=== PATIENT | female | born 1985 | race Caucasian/White ===

== ENCOUNTER 2016-12-22 18:58 | Emergency (ER) | payer SELFPAY ==
[2016-12-22 20:47] LABS: BASOPHIL % 0.2 % (0-2); PLATELET COUNT 345 x10^3mcL (130-400); RED CELL DISTRIBUTION WIDTH 13.4 % (11.5-14.5)
[2016-12-22 20:50] LABS: AMPHETAMINE QUAL UR NONE DETECTED (NEG <=1000)
[2016-12-22 20:57] LABS: CALCIUM 9.1 mg/dL (8.5-10.1); CARBON DIOXIDE 28.3 mmol/L (21-32); CHLORIDE SERUM 106 mmol/L (98-107); CREATININE SERUM 0.7 mg/dL (0.6-1.0); GFR1 > 60 mL/min; GLUCOSE SERUM 157 mg/dL (74-106); POTASSIUM SERUM 3.6 mmol/L (3.5-5.1); SODIUM SERUM 141 mmol/L (136-145)
[2016-12-22 21:02] LABS: ALBUMIN 4.3 g/dL (3.4-5.0); ALKALINE PHOSPHATASE 69 U/L (46-116); ALT/SGPT 45 U/L (14-59); AST/SGOT 22 U/L (15-37); TOTAL PROTEIN, SERUM 8.1 g/dL (6.4-8.2)
[2016-12-23 04:45] VITALS: BP 143/97
== END 2016-12-23 04:45 | disposition home or self-care (01) ==
LOC: ED 18:58
PROVIDERS: Emergency Medicine
DX: T40.7X5A Adverse effect of cannabis (derivatives), initial encounter (principal)
CPT/HCPCS: G0480; J2060; J7030

== ENCOUNTER 2019-05-16 20:41 | Emergency (ER) | payer OTHER, MEDICAID ==
[~2019-05-16] VITALS: Ht 154.9 cm; Wt 79.4 kg
[2019-05-16 20:49] VITALS: Ht 154.9 cm; Wt 79.4 kg
[2019-05-16 21:24] LABS: BASOPHIL % 0.9 % (0-2); PLATELET COUNT 351 x10^3mcL (130-400); RED CELL DISTRIBUTION WIDTH 13.9 % (11.5-14.5)
[2019-05-16 21:42] LABS: CALCIUM 8.4 mg/dL (8.5-10.1); CHLORIDE SERUM 105 mmol/L (98-107); CREATININE SERUM 0.6 mg/dL (0.6-1.0); GFR1 > 60 mL/min; GLUCOSE SERUM 143 mg/dL (74-106); POTASSIUM SERUM 3.4 mmol/L (3.5-5.1); SODIUM SERUM 143 mmol/L (136-145)
[2019-05-16 21:46] LABS: ALBUMIN 4.3 g/dL (3.4-5.0); ALKALINE PHOSPHATASE 75 U/L (46-116); ALT/SGPT 58 U/L (14-59); AST/SGOT 28 U/L (15-37); BILIRUBIN TOTAL 0.22 mg/dL (0.20-1.00); LIPASE 217 IU/L (73-393); TOTAL PROTEIN, SERUM 7.9 g/dL (6.4-8.2)
[2019-05-16 22:20] LABS: microscopic required? NO
[2019-05-16 22:34] LABS: urine erythrocyte NEGATIVE (NEGATIVE)
[2019-05-16 23:23] VITALS: BP 128/90
== END 2019-05-16 23:23 | disposition home or self-care (01) ==
LOC: ED 20:41
PROVIDERS: Emergency Medicine
DX: F10.129 Alcohol abuse with intoxication, unspecified (principal); F32.9 Major depressive disorder, single episode, unspecified; Z90.710 Acquired absence of both cervix and uterus; Z88.5 Allergy status to narcotic agent
CPT/HCPCS: G0480; J2060; J7030; Q0092

== ENCOUNTER 2019-06-26 20:00 | Inpatient (IN) | payer MEDICAID ==
[~2019-06-26] VITALS: Ht 157.5 cm; Wt 79.4 kg
[2019-06-26 20:05] VITALS: Ht 157.5 cm; Wt 79.4 kg
[2019-06-26 20:45] LABS: UA SPECIFIC GRAVITY >=1.030 (1.005-1.035); microscopic required? YES; urine erythrocyte 3+ (NEGATIVE)
[2019-06-26 20:47] LABS: BASOPHIL % 0.4 % (0-2); RED CELL DISTRIBUTION WIDTH 14.2 % (11.5-14.5)
[2019-06-26 20:49] LABS: PLATELET COUNT 416 x10^3mcL (130-400)
[2019-06-26 21:01] LABS: AMPHETAMINE QUAL UR NONE DETECTED (See below)
[2019-06-26 21:24] LABS: CARBON DIOXIDE 24.2 mmol/L (21-32); CHLORIDE SERUM 105 mmol/L (98-107); CREATININE SERUM 0.9 mg/dL (0.6-1.0); GFR1 > 60 mL/min; GLUCOSE SERUM 189 mg/dL (74-106); POTASSIUM SERUM 3.1 mmol/L (3.5-5.1); SODIUM SERUM 140 mmol/L (136-145)
[2019-06-26 21:28] LABS: ALBUMIN 4.3 g/dL (3.4-5.0); ALKALINE PHOSPHATASE 74 U/L (46-116); ALT/SGPT 43 U/L (14-59); AST/SGOT 13 U/L (15-37); BILIRUBIN TOTAL 0.43 mg/dL (0.20-1.00); TOTAL PROTEIN, SERUM 7.4 g/dL (6.4-8.2)
[2019-06-27 00:34] LABS: CHOLESTEROL/HDL RATIO 3.8; MAGNESIUM 1.8 mg/dL (1.8-2.4)
[2019-06-27 00:41] VITALS: BP 139/86
[2019-06-27 01:07] LABS: FREE T4 1.08 ng/dL (0.76-1.46); FREE THYROXINE INDEX 3.1 ug/dL (1.4-4.5); T4(THYROXINE) 9.9 ug/dL (4.7-13.3)
[2019-06-27 02:01] LABS: T3 TOTAL 1.7 ng/mL
[2019-06-27 04:57] VITALS: BP 111/77
[2019-06-27 06:48] LABS: BASOPHIL % 0.4 % (0-2); PLATELET COUNT 353 x10^3mcL (130-400); RED CELL DISTRIBUTION WIDTH 14.5 % (11.5-14.5)
[2019-06-27 07:09] LABS: CALCIUM 8.4 mg/dL (8.5-10.1); CARBON DIOXIDE 24.1 mmol/L (21-32); CHLORIDE SERUM 110 mmol/L (98-107); CREATININE SERUM 0.6 mg/dL (0.6-1.0); GFR1 > 60 mL/min; GLUCOSE SERUM 83 mg/dL (74-106); MAGNESIUM 2.1 mg/dL (1.8-2.4); POTASSIUM SERUM 3.6 mmol/L (3.5-5.1); SODIUM SERUM 145 mmol/L (136-145)
[2019-06-27 07:45] VITALS: BP 131/82
[2019-06-27 11:57] VITALS: BP 144/83
[2019-06-27] MEDS ORDERED: LEVAQUIN500 M1 PO (12:37)
[2019-06-27 12:58] VITALS: BP 144/83
== END 2019-06-27 14:01 | disposition home or self-care (01) | DRG 720 ==
LOC: ED 20:00 → DU 22:52
PROVIDERS: Emergency Medicine; ADMIT Internal Medicine
DX: A41.9 Sepsis, unspecified organism (principal); E83.39 Other disorders of phosphorus metabolism; E87.6 Hypokalemia; F12.929 Cannabis use, unspecified with intoxication, unspecified; N39.0 Urinary tract infection, site not specified; F32.9 Major depressive disorder, single episode, unspecified; G89.29 Other chronic pain; T65.891A Toxic effect of other specified substances, accidental (unintentional), initial encounter; R65.20 Severe sepsis without septic shock; Z88.5 Allergy status to narcotic agent; Y92.098 Other place in other non-institutional residence as the place of occurrence of the external cause
CPT/HCPCS: 83880; 84439; G0378; G0480; J0696; J1885; J7030; J7060; Q0092